=== PATIENT | male | born 1990 | race African-American/Black ===

== ENCOUNTER 2020-07-19 02:18 | Observation (INO) | payer OTHER, SELFPAY ==
[2020-07-19] VITALS (19 sets, daily range): BP systolic 92–133; BP diastolic 48–86; PULSE 71–130; RESP 14–22; TEMP 36–37; O2SAT 99–100; BMI 20.6
--- NOTE | ~2020-07-19 | XR_ITS ---
EXAMINATION: XR chest 1V portable DATE: 07/19/2020 03:07 INDICATION: Syncope. Dizziness. TECHNIQUE: A single frontal view of the chest was obtained. COMPARISON: None. FINDINGS: The chest demonstrates clear lungs without pneumonia, pleural effusion, or pneumothorax. Th e heart size is normal. IMPRESSION: 1. No acute cardiopulmonary disease. Reviewed, dictated and finalized at location A.
--- NOTE | 2020-07-19 02:27 | ECG_ITS ---
Measurements Intervals Sanders Rate: 93 P: 60 RI: 148 QRS: 43 QRSD: 70 T: 43 QT: 305 QTc: 381 Interpretive Statements SINUS RHYTHM NORMAL ECG Electronically Signed On 07-19-2020 7:11:45 CDT by Dima Patel D.O.
[2020-07-19 03:14] LABS: Basophils Percent Auto 0.3 % (0.2-1.2); Eosinophils Percent Auto 0.6 % (0-4.4); Hematocrit 37.6 % (42.0-52.0); Hemoglobin 12.3 g/dL (14.0-18.0); Immature Granulocyte Absolute 0.02 K/mm3 (0.00-0.031); Immature Granulocyte Percent A 0.3 % (0-0.5); Immature Platelet Fraction Pct 8.6 % (0.9-11.2); Lymphocytes Absolute Auto 2.91 K/mm3 (0.9-3.2); Lymphocytes Percent Auto 43.2 % (18.3-44.2); Mean Corpuscular HGB Conc 32.7 g/dl (32-36); Mean Corpuscular Hemoglobin 26.5 pg (26-34); Mean Platelet Volume 11.2 fl (7.4-10.4); Monocytes Absolute Auto 0.6 K/mm3 (0.1-0.6); Monocytes Percent Auto 8.2 % (2.6-8.5); Neutrophils Absolute Auto 3.2 K/mm3 (1.3-6.7); Neutrophils Percent Auto 47.4 % (45.5-73.1); Platelet Count Result 145 k/mm3 (150-375); Red Blood Count 4.64 M/mm3 (4.6-6.20); Red Cell Distribution Width 13.7 % (11.5-14.5); White Blood Count 6.7 K/mm3 (4.5-10.0)
[2020-07-19 03:15] LABS: Add Urine Microscopic? YES; Appearance Urine Clear (Clear); Bilirubin Urine Negative (Negative); Blood Urine Negative (Negative); Color Urine Straw (Yellow); Glucose Urine UA 1+ mg/dL (Negative); Ketones Urine Trace mg/dL (Negative); Leukocyte Esterase Ur Negative LEU/UL (Negative); Nitrate Urine Negative (Negative); Protein Urine Negative (Negative); Urobilinogen Urine Negative mg/dL (<2.0); WBC Urine 0-3 /hpf
[2020-07-19] MEDS: SODIUM CHLORIDE 0.9% IV 1,000 ML 999 ML IV CONT ×2 (03:15→04:48)
--- NOTE | 2020-07-19 03:20 | ED.GENADULT ---
HPI - General Adult General Chief complaint: Dizziness Stated complaint: dizziness Time Seen by Provider: 07/19/20 02:21 History of Present Illness HPI narrative: Patient is a 30-year-old gentleman who presents the emergency department with chief complaint of dizziness. Patient reports that he had an episode yesterday while praying and then tonight whenever he got up to go to the bathroom. The patient reported going to bathroom and then immediately afterwards felt very lightheaded and felt as though he was going to pass out. Patient reports he did not actually pass out Related Data Allergies Allergy/AdvReac Type Severity Reaction Status Date / Time No Known Allergies Allergy Verified 07/19/20 03:38 Review of Systems Review of Systems: Narrative: A 10 system review of systems was completed on the patient and is negative except for what is stated in the HPI. Nursing and ancillary documentation was reviewed. PMFSH Comments Patient denies significant past medical history Social history the patient denies illicit drug use Exam Narrative: Exam Narrative: GENERAL: Well-appearing, well-nourished, and in no acute distress. HEAD: Normocephalic, atraumatic. EYES: PERRLA and EOMI. ENT: Nares clear, no rhinorrhea or epistaxis. Mucous membranes moist. NECK: Supple. CHEST: Clear to auscultation. No respiratory distress. HEART: Regular rate and rhythm. No murmur heard. Normal peripheral pulses. ABDOMEN: Soft, nontender, nondistended, normal active bowel sounds. gu black guiac positive stool EXTREMITIES: Normal range of motion. No edema. SKIN: Warm, dry, no rash. NEURO: No focal deficits. Alert and oriented x3. PSYCH: Normal mood and affect. Course Course Emergency Course: Patient was initially orthostatic and that is improved with IV fluids. After discussion of the patient he normally has a hemoglobin that is between 14 and 16. The case was discussed with Dr. Sy who is on-call for gastroenterology will be happy to consult on the patient and will be admitted to the hospitalist service. Vital Signs Vital signs: Vital Signs Temperature 36.4 C L 07/19/20 02:20 Pulse Rate 95 07/19/20 02:20 Respiratory Rate 16 07/19/20 02:20 Blood Pressure 126/86 07/19/20 02:20 Pulse Oximetry 100 07/19/20 02:20 Temperature 36.4 C L 07/19/20 02:20 Pulse Rate 100 07/19/20 05:28 Respiratory Rate 16 07/19/20 04:30 Blood Pressure 126/75 07/19/20 05:28 Pulse Oximetry 99 07/19/20 04:30 Medical Decision Making Vital Signs Vital Signs: Vital Signs Temperature 36.4 C L 07/19/20 02:20 Pulse Rate 95 07/19/20 02:20 Respiratory Rate 16 07/19/20 02:20 Blood Pressure 126/86 07/19/20 02:20 Pulse Oximetry 100 07/19/20 02:20 Temperature 36.4 C L 07/19/20 02:20 Pulse Rate 100 07/19/20 05:28 Respiratory Rate 16 07/19/20 04:30 Blood Pressure 126/75 07/19/20 05:28 Pulse Oximetry 99 07/19/20 04:30 Lab Data Result diagrams: 07/19/20 03:05 07/19/20 03:05 Labs: Lab Results 07/19/20 07/19/20 07/19/20 Range/Units 03:05 03:05 03:05 WBC 6.7 (4.5-10.0) K/mm3 RBC 4.64 (4.6-6.20) M/mm3 Hgb 12.3 L (14.0-18.0) g/dL Hct 37.6 L (42.0-52.0) % MCV 81.0 (80-100) fl MCH 26.5 (26-34) pg MCHC 32.7 (32-36) g/dl RDW 13.7 (11.5-14.5) % Plt Count 145 L (150-375) k/mm3 MPV 11.2 H (7.4-10.4) fl Immature Gran % (Auto) 0.3 (0-0.5) % Neut % (Auto) 47.4 (45.5-73.1) % Lymph % (Auto) 43.2 (18.3-44.2) % Page % (Auto) 8.2 (2.6-8.5) % Eos % (Auto) 0.6 (0-4.4) % Baso % (Auto) 0.3 (0.2-1.2) % Lymph # (Auto) 2.91 (0.9-3.2) K/mm3 Page # (Auto) 0.6 (0.1-0.6) K/mm3 Eos # (Auto) 0.0 (0-0.3) K/mm3 Baso # (Auto) 0.0 (0.0-0.1) K/mm3 Abs Immat Gran (auto) 0.02 (0.00-0.031) K/mm3 Absolute Neuts (auto) 3.2 (1.3-6.7) K/mm3 Absolute Nucleated RBC 0.0 (0.0-0.012) K/mm3 N
[2020-07-19 03:22] LABS: Alanine Aminotransferase 19 U/L (4-50); Alkaline Phosphatase 29 U/L (38-126); Anion Gap 5 mmol/L (8-16); Aspartate Amino Transferase 28 U/L (17-59); Bilirubin,Total 0.3 mg/dL (0.2-1.3); Blood Urea Nitrogen 40 mg/dL (9-20); Calcium 9.1 mg/dL (8.4-10.2); Carbon Dioxide 30 mmol/L (22-30); Chloride 108 mmol/L (98-107); Estimated CRCL calculation 87 ml/min; Estimated Glomerular Filt Rate > 60; Glucose 108 mg/dL (75-110); Magnesium 2.2 mg/dL (1.6-2.3); Potassium 4.6 mmol/L (3.4-5.0); Sodium 143 mmol/L (137-145)
[2020-07-19 03:34] LABS: Troponin I 0.017 ng/mL (0.000-0.034)
[2020-07-19 03:39] LABS: Lactic Acid Reflex 1.4 mmol/L (0.7-2.1)
[2020-07-19] MEDS: ONDANSETRON INJ 4 MG/2 ML VIAL IV PUSH (04:47)
[2020-07-19 08:00] LABS: Hematocrit 31.7 % (42.0-52.0); Hemoglobin 10.5 g/dL (14.0-18.0)
--- NOTE | 2020-07-19 08:03 | ADMGEN ---
This patient, Zhou Monet, was admitted to [facility] Surg Room 325-01 @ 0708. Patient/family oriented to hospital policies and general routines including ID bracelet, bed and alarms, visiting hours, pain management, procedures, bathroom and other care routines, personal items, smoking policy, room service/diet, and visiting hours. Information on how to activate the Rapid Response Team has been discussed. Patient/Family are encouraged to report perceived risks to care and to ask questions if they do not understand what they are told or what they should do.
[2020-07-19] MEDS: SODIUM CHLORIDE 0.9% IV 1,000 ML 125 ML IV CONT ×2 (08:07→18:25)
--- NOTE | 2020-07-19 08:19 | PM.IMHP ---
H&P: HPI History of Present Illness Date/Time: 07/19/20 08:19 This is a 30 yo male with non significant PMHx that presented to the ED due to light headedness, that occurred couple of times on the previous couple of days when patient was getting up from prayer position and when getting out of bed, he also had 2 bowel movements with which were dark and had blood clots in it, no n/v/abdominal pain, had abdominal cramps prior to passing bloody bowel movements, no diarrhea, no weight ,loss, no fevers, no rigors, no chills, no night sweats, denies the use of any OTC medications, he has been in his usual state of health up until this happened. Preliminary work up was significant for a hemoglobin of 10. Chief Complaint: Lightheadedness. Review of Systems Review of Systems: Narrative: Patient with lightheadedness feeling about to pass out, passed some bloody stool with blood clots in it x 2 Constitutional: Comments: no weight loss, no fevers, no rigors, no chills, no night sweats. ENT: Comments: no nasal congestion, no ear ache, no throat pain. Cardiovascular: Comments: no chest pain, no sob, no leg swelling. Respiratory: Comments: no cough, no sob, no sputum production. Gastrointestinal: Comments: melena, abdominal cramps,no n/v/abdominal pain, Musculoskeletal: Comments: no muscle ache, no joint pain. Integumentary/Breasts: Comments: no rashes. Neurologic: Comments: no sensory motor deficit. [facility] Past Medical History Medical History (Updated 07/19/20 @ 11:34 by Derrick Newman MD) Acute blood loss anemia GI bleed Melena Near syncope UGIB (upper gastrointestinal bleed) Family History Family History (Updated 07/19/20 @ 08:17 by Izabella Prasad RN) Sibling Asthma Social History Social History Smoking status: Never smoker Alcohol intake: never Substance use: never Gender identity (if verbalized by the patient): Male Spiritual care concerns: No Meds Home Medications and Allergies Home Medications Medication Instructions Recorded Confirmed Type ondansetron 4 mg PO Q8H PRN #10 tablet 07/19/20 Rx pantoprazole [Protonix] 40 mg PO HS 28 Days #28 tablet 07/19/20 Rx Allergies Allergy/AdvReac Type Severity Reaction Status Date / Time No Known Allergies Allergy Verified 07/19/20 10:22 Vital Signs Vital Signs - 24 hr 07/19/20 02:20 07/19/20 03:09 07/19/20 03:10 Temperature 97.5 F L Pulse Rate 95 94 100 Respiratory Rate 16 Blood Pressure 126/86 113/77 126/85 Pulse Oximetry 100 07/19/20 03:19 07/19/20 04:30 07/19/20 05:26 Temperature Pulse Rate 130 H 96 100 Respiratory Rate 16 Blood Pressure 101/65 114/70 120/61 Pulse Oximetry 99 07/19/20 05:28 07/19/20 05:46 07/19/20 06:01 Temperature Pulse Rate 100 84 77 Respiratory Rate 14 14 Blood Pressure 126/75 128/79 116/69 Pulse Oximetry 100 100 07/19/20 06:16 07/19/20 06:59 Temperature 98.6 F 98.6 F Pulse Rate 82 82 Respiratory Rate 14 14 Blood Pressure 116/66 116/66 Pulse Oximetry 100 100 Exam Narrative: Exam Narrative: Lying in bed. Const: General: comfortable, no acute distress, alert, awake and Physically active Nutritional Appearance: well nourished Orientation/consciousness: patient oriented x3 HENMT: Head: normal to inspection and normocephalic Ears: hearing grossly normal bilaterally General nose exam: Normal external nose present Face and sinus: normal facial exam Mouth: Yes Normal oral and palatal mucosa present Eyes: General: appearance normal, both eyes and all related structures Pupils: Equal, round and reactive pupils present EOM: EOMs intact bilaterally Neck: Neck: no lymphadenopathy, supple and no JVD Resp: Effort & Inspection: normal respiratory effort and able to speak in complete sentences Auscultation: clear to auscultation bilaterally Cardio: Jugular venous distension: no JVD Rate: regular rate Rhythm: regular rhythm GI: GI Palp: Yes Soft to palpa
[2020-07-19] MEDS: PANTOPRAZOLE SODIUM IV 40 MG VIAL IV PUSH ×2 (08:34→20:25)
--- NOTE | 2020-07-19 10:18 | PC.NURSE ---
Patient to GI lab per wheelchair.
[2020-07-19] MEDS: LACTATED RINGERS 1,000 ML 150 ML IV CONT (10:29)
--- NOTE | 2020-07-19 10:46 | WPDANESEPPF ---
Anes - Initial Pre Proc Eval Procedure: Operation Date: 07/19/20 14:15 Proposed Procedures p Esophagogastroduodenoscopy - Derrick Newman MD Date/Time: 07/19/20 10:46 Surgeon: Maximus Marin MD Pre Op Diagnosis: GI bleed Patient Data Age: 30 Gender: M Height: 5 ft 9 in Weight: 63.4 kg Last Vital Signs Temp 98.1 F 07/19/20 10:25 Pulse 81 07/19/20 10:25 Resp 17 07/19/20 10:25 BP 133/66 07/19/20 10:25 Pulse Ox 100 07/19/20 10:25 Allergies Allergy/AdvReac Type Severity Reaction Status Date / Time No Known Allergies Allergy Verified 07/19/20 10:22 Home Medications Medication Instructions Recorded Confirmed Type ondansetron 4 mg PO Q8H PRN #10 tablet 07/19/20 Rx pantoprazole [Protonix] 40 mg PO HS 28 Days #28 tablet 07/19/20 Rx Laboratory Tests 07/19/20 07/19/20 07/19/20 03:05 03:05 03:05 WBC 6.7 K/mm3 K/mm3 (4.5-10.0) RBC 4.64 M/mm3 M/mm3 (4.6-6.20) Hgb 12.3 g/dL L g/dL (14.0-18.0) Hct 37.6 % L % (42.0-52.0) MCV 81.0 fl fl (80-100) MCH 26.5 pg pg (26-34) MCHC 32.7 g/dl g/dl (32-36) RDW 13.7 % % (11.5-14.5) Plt Count 145 k/mm3 L k/mm3 (150-375) MPV 11.2 fl H fl (7.4-10.4) Immature Gran % (Auto) 0.3 % % (0-0.5) Neut % (Auto) 47.4 % % (45.5-73.1) Lymph % (Auto) 43.2 % % (18.3-44.2) Dewey % (Auto) 8.2 % % (2.6-8.5) Eos % (Auto) 0.6 % % (0-4.4) Baso % (Auto) 0.3 % % (0.2-1.2) Lymph # (Auto) 2.91 K/mm3 K/mm3 (0.9-3.2) Dewey # (Auto) 0.6 K/mm3 K/mm3 (0.1-0.6) Eos # (Auto) 0.0 K/mm3 K/mm3 (0-0.3) Baso # (Auto) 0.0 K/mm3 K/mm3 (0.0-0.1) Abs Immat Gran (auto) 0.02 K/mm3 K/mm3 (0.00-0.031) Absolute Neuts (auto) 3.2 K/mm3 K/mm3 (1.3-6.7) Absolute Nucleated RBC 0.0 K/mm3 K/mm3 (0.0-0.012) Nucleated RBC % 0.0 % % (0.0-0.2) % Immature Plt Fraction 8.6 % % (0.9-11.2) Sodium 143 mmol/L mmol/L (137-145) Potassium 4.6 mmol/L mmol/L (3.4-5.0) Chloride 108 mmol/L H mmol/L (98-107) Carbon Dioxide 30 mmol/L mmol/L (22-30) Anion Gap 5 mmol/L L mmol/L (8-16) BUN 40 mg/dL H mg/dL (9-20) Creatinine 1.00 mg/dL mg/dL (0.7-1.3) Estim Creat Clear Calc 87 ml/min ml/min Estimated GFR > 60 (59 - ) Glucose 108 mg/dL mg/dL (75-110) Lactic Acid Calcium 9.1 mg/dL mg/dL (8.4-10.2) Magnesium 2.2 mg/dL mg/dL (1.6-2.3) Total Bilirubin 0.3 mg/dL mg/dL (0.2-1.3) AST 28 U/L U/L (17-59) ALT 19 U/L U/L (4-50) Alkaline Phosphatase 29 U/L L U/L (38-126) Troponin I 0.017 ng/mL ng/mL (0.000-0.034) Total Protein 7.0 g/dL g/dL (6.3-8.2) Albumin 4.0 g/dL g/dL (3.5-5.1) Urine Color Straw (Yellow) Urine Appearance Clear (Clear) Urine pH 6.0 (5.0-9.0) Ur Specific Bullock 1.020 (1.001-1.035) Urine Protein Negative mg/dL mg/dL (Negative) Urine Glucose (UA) 1+ mg/dL H mg/dL (Negative) Urine Ketones Trace mg/dL mg/dL (Negative) Ur Blood (Man) Negative (Negative) Urine Nitrate Negative (Negative) Urine Bilirubin Negative (Negative) Urine Urobilinogen Negative mg/dL mg/dL (<2.0) Leukocyte Esterase Rfl Negative PUNEET/UL PUNEET/UL (Negative) Urine WBC 0-3 /hpf /hpf 07/19/20 07/19/20 03:24 07:54 WBC RBC Hgb 10.5 g/dL L g/dL (14.0-18.0) Hct 31.7 % L % (42.0-52.0) MCV MCH MCHC RDW Plt Count MPV Immature Gran % (Auto) Neut % (Auto) Ly
--- NOTE | 2020-07-19 11:30 | WPDGICN ---
Assessment and Plan Assessment and plan (1) UGIB (upper gastrointestinal bleed): Code(s): K92.2 - Gastrointestinal hemorrhage, unspecified Status: Acute Assessment and Plan: here with acute gib, denies history of nsaid's drop in hemoglobin, started on protonix iv and npo status will proceed with urgent egd (2) Melena: Code(s): K92.1 - Melena Status: Acute Assessment and Plan: trend hb, supportive care with fluids, protonix and now will do EGD (3) Acute blood loss anemia: Code(s): D62 - Acute posthemorrhagic anemia Status: Acute Assessment and Plan: monitor for more signs of bleeding transfuse if hb<7 (4) Near syncope: Code(s): R55 - Syncope and collapse Status: Acute Assessment and Plan: from bleeding, admitted to hospital GI Consult Note Consult date/time: 07/19/20 11:30 Reason for consult: GIB, melena HPI: Zhou Monet is a 30 year old male who is originally from [facility], he is [employer] student. He had 2 days of dark stools x3 episodes, last night became lightheaded and almost passed out, also epigastric discomfort. Denies taking nsaid's or any other medications. He is healthy otherwise. He called 911 and ER labs showed anemia, hb 12,3 then down 10 with elevated BUN 40, creat 1, normal liver enzymes. Denies history of bleeding, no previous scopes. Denies h/o GERD. Review of Systems Constitutional: Constitutional: Denies chills Eyes: Eyes: Reports no additional eye complaints ENT: Reports Normal hearing present Cardiovascular: Cardiovascular: Reports no additional cardiovascular complaints Gastrointestinal: Gastrointestinal: Reports melena and Denies nausea Genitourinary: Genitourinary: Denies dysuria Musculoskeletal: Musculoskeletal: Reports no additional musculoskeletal complaints Integumentary/Breasts: Skin/Breast: Denies dry skin Neurologic: Denies confusion Comments: near syncope Psychiatric: Psychiatric: Reports no additional psychiatric complaints Endocrine: Endocrine: Denies cold intolerance [facility] Past Medical History Medical History (Updated 07/19/20 @ 11:34 by Derrick Newman MD) Acute blood loss anemia GI bleed Melena Near syncope UGIB (upper gastrointestinal bleed) Family History Family History (Updated 07/19/20 @ 08:17 by Izabella Prasad RN) Sibling Asthma Social History Social History Smoking status: Never smoker Alcohol intake: never Substance use: never Gender identity (if verbalized by the patient): Male Spiritual care concerns: No Meds Home Medications and Allergies Home Medications Medication Instructions Recorded Confirmed Type ondansetron 4 mg PO Q8H PRN #10 tablet 07/19/20 Rx pantoprazole [Protonix] 40 mg PO HS 28 Days #28 tablet 07/19/20 Rx Allergies Allergy/AdvReac Type Severity Reaction Status Date / Time No Known Allergies Allergy Verified 07/19/20 10:22 Vital Signs Vital Signs - 24 hr 07/19/20 02:20 07/19/20 03:09 07/19/20 03:10 Temperature 97.5 F L Pulse Rate 95 94 100 Respiratory Rate 16 Blood Pressure 126/86 113/77 126/85 Pulse Oximetry 100 07/19/20 03:19 07/19/20 04:30 07/19/20 05:26 Temperature Pulse Rate 130 H 96 100 Respiratory Rate 16 Blood Pressure 101/65 114/70 120/61 Pulse Oximetry 99 07/19/20 05:28 07/19/20 05:46 07/19/20 06:01 Temperature Pulse Rate 100 84 77 Respiratory Rate 14 14 Blood Pressure 126/75 128/79 116/69 Pulse Oximetry 100 100 07/19/20 06:16 07/19/20 06:59 07/19/20 10:25 Temperature 98.6 F 98.6 F 98.1 F Pulse Rate 82 82 81 Respiratory Rate 14 14 17 Blood Pressure 116/66 116/66 133/66 Pulse Oximetry 100 100 100 Exam Const: General: comfortable and no acute distress HENMT: General nose exam: Normal nares present Eyes: General: appearance normal, both eyes and all related structures Neck: Neck: no JVD Resp: Auscultation: clear to auscultation lv
[2020-07-19] MEDS: BENZOCAINE (*SP) 60 ML SPRAY CAN (HURRICAINE) 1 SPRAY MUCOUS MEM (11:35)
--- NOTE | 2020-07-19 12:06 | SUR.PHASEII ---
1205--DR BENJAMIN NOTIFIED OF PT'S POSITIVE H PYLORI RESULTS. NO NEW ORDERS RECEIVED.
--- NOTE | 2020-07-19 12:24 | PC.NURSE ---
Patient returned from GI lab per stretcher.
[2020-07-19 13:04] LABS: Hematocrit 31.2 % (42.0-52.0); Hemoglobin 10.4 g/dL (14.0-18.0)
[2020-07-19 17:49] LABS: Hematocrit 29.6 % (42.0-52.0); Hemoglobin 9.9 g/dL (14.0-18.0)
[2020-07-19] MEDS: CLARITHROMYCIN 500 MG TABLET PO (20:25)
[2020-07-19] MEDS: AMOXICILLIN 500 MG CAPSULE 1000 MG PO (20:25)
[2020-07-20 00:40] LABS: Hematocrit 27.5 % (42.0-52.0); Hemoglobin 9.1 g/dL (14.0-18.0)
[2020-07-20] MEDS: SODIUM CHLORIDE 0.9% IV 1,000 ML 125 ML IV CONT (02:35)
[2020-07-20 05:58] VITALS: BP 108/62; PULSE 85; RESP 20; TEMP 36.6; O2SAT 92
--- NOTE | 2020-07-20 07:52 | WPDGIPROGNO ---
Progress Note: A&P Assessment and Plan (1) Duodenal ulcer: Code(s): K26.9 - Duodenal ulcer, unspecified as acute or chronic, without hemorrhage or perforation Status: Acute Assessment and Plan: egd yesterday with duodenal ulcers, no active bleeding but small clot, used gold probe no more bleeding discuss findings of H pylori +, started on treatment and will need total of 14 days, then he can see me in office in ~ 2 months (will check H pylori ag in stool to confirm eradication) (2) Helicobacter pylori gastritis: Code(s): K29.70 - Gastritis, unspecified, without bleeding; B96.81 - Helicobacter pylori [H. pylori] as the cause of diseases classified elsewhere Status: Acute Assessment and Plan: complete treatment as outpatient (3) Acute blood loss anemia: Code(s): D62 - Acute posthemorrhagic anemia Status: Acute Assessment and Plan: will need also iron supplemen cbc as outpatient (4) Near syncope: Code(s): R55 - Syncope and collapse Status: Acute (5) Melena: Code(s): K92.1 - Melena Status: Acute Subjective Date/time seen: 07/20/20 07:52 Interval history: no more bleeding Review of Systems Review of Systems: All systems reviewed & are unremarkable except as noted in HPI and below Exam Const: General: comfortable and no acute distress HENMT: General nose exam: Normal nares present Eyes: General: appearance normal, both eyes and all related structures Neck: Neck: no JVD Resp: Auscultation: clear to auscultation bilaterally Cardio: Rate: regular rate Rhythm: regular rhythm GI: Inspection: non-distended GI Palp: Yes Soft to palpation Skin: General skin exam: normal color Neuro: General: gait normal Speech: normal speech Extrem: General: normal to inspection Psych: Mental Status: mental status grossly normal Objective Data Vital Signs Vital Signs: Vital Signs - 24 hr 07/19/20 10:25 07/19/20 11:49 07/19/20 11:59 Temperature 98.1 F Pulse Rate 81 84 86 Respiratory Rate 17 18 20 Blood Pressure 133/66 92/48 L 94/50 L Pulse Oximetry 100 100 99 07/19/20 12:09 07/19/20 12:36 07/19/20 14:00 Temperature 96.8 F L 97.0 F L Pulse Rate 78 71 73 Respiratory Rate 22 H 18 18 Blood Pressure 96/54 L 112/67 115/69 Pulse Oximetry 100 100 100 07/19/20 20:00 07/19/20 21:52 07/20/20 05:58 Temperature 97.4 F L 97.8 F Pulse Rate 77 77 85 Respiratory Rate 20 20 20 Blood Pressure 107/65 108/62 Pulse Oximetry 100 100 92 Intake/Output Intake/Output: Intake & Output 07/17/20 07/18/20 07/19/20 07/20/20 22:59 23:59 23:59 23:59 Intake Total 3490 1500 Balance 3490 1500 Meds/Results Medications: Active Medications Generic Name Dose Route Start Last Admin Trade Name Freq PRN Reason Stop Dose Admin Amoxicillin 1,000 mg 07/19/20 21:00 07/19/20 20:25 Amoxicillin 500 Mg Capsule PO 08/02/20 21:01 1,000 mg Q12HR ROSALIE Administration Clarithromycin 500 mg 07/19/20 21:00 07/19/20 20:25 Clarithromycin 500 Mg Tablet PO 08/02/20 21:01 500 mg Q12HR ROSALIE Administration Sodium Chloride 1,000 mls @ 125 mls/hr 07/19/20 06:15 07/20/20 02:35 Normal Saline Iv IV CONT 125 mls/hr .Q8H ROSALIE Administration Ondansetron HCl 4 mg 07/19/20 06:14 Ondansetron Inj 4 Mg/2 Ml Vial IV PUSH Q4H PRN Nausea Pantoprazole Sodium 40 mg 07/19/20 21:00 07/19/20 20:25 Pantoprazole Sodium Iv 40 Mg Vial IV PUSH 40 mg Q12HR ROSALIE Administration Radiology Results: ITS Impressions Chest X-Ray 07/19/20 06:51 IMPRESSION: 1. No acute cardiopulmonary disease. Labs Labs: Laboratory Results - last 24 hr 07/19/20 07/19/20 07/19/20 07:54 12:57 17:36 Hgb 10.5 L 10.4 L 9.9 L Hct 31.7 L 31.2 L 29.6 L 07/20/20 00:11 Hgb 9.1 L Hct 27.5 L
[2020-07-20 09:00] VITALS: PULSE 80; RESP 18; O2SAT 96
[2020-07-20] MEDS: AMOXICILLIN 500 MG CAPSULE 1000 MG PO (09:00)
[2020-07-20] MEDS: CLARITHROMYCIN 500 MG TABLET PO (09:00)
[2020-07-20] MEDS: PANTOPRAZOLE SODIUM IV 40 MG VIAL IV PUSH (09:02)
--- NOTE | 2020-07-20 09:13 | WPDANESPN ---
Anes - Prog Note Post-Op Date/Time: 07/20/20 09:13 Cardiovascular status: normal Respiratory status: normal Airway patency: baseline Mental status: baseline Post-Op hydration status: normal Vital Signs: Last Vital Signs Temp 36.6 C 07/20/20 05:58 Pulse 80 07/20/20 09:00 Resp 18 07/20/20 09:00 BP 108/62 07/20/20 05:58 Pulse Ox 96 07/20/20 09:00 Pain Score (VAS): 0/10. Patient resting in bed at time of assessment, appears comfortable. I/O: Intake & Output 07/19/20 07/20/20 07/20/20 23:59 07:59 15:59 Intake Total 1370 1500 Balance 1370 1500 Laboratory Tests 07/20/20 00:11 07/19/20 03:05 07/19/20 07/19/20 07/20/20 12:57 17:36 00:11 Hgb 10.4 L 9.9 L 9.1 L Hct 31.2 L 29.6 L 27.5 L Post-procedural complaints: none Patient Feedback: Patient satisfied with anesthetic care.
[2020-07-20] MEDS: ACETAMINOPHEN 500 MG TABLET 1000 MG PO (11:18)
--- NOTE | 2020-07-20 11:56 | PM.DS ---
DS: Admitting Diagnosis Admitting Diagnosis Admitting Diagnosis: 1) UGIB (upper gastrointestinal bleed): Code(s): K92.2 - Gastrointestinal hemorrhage, unspecified Status: Acute Assessment and Plan: S/p EGD On PPI Ulcers were found in the duodenum. (2) Acute blood loss anemia: Code(s): D62 - Acute posthemorrhagic anemia Status: Acute Assessment and Plan: Transfuse as needed for Hbg 7 or below No new episodes Continue to monitor (3) Near syncope: Code(s): R55 - Syncope and collapse Status: Acute Assessment and Plan: Likely secondary to blood loss Continue to monitor Resolved (4) Melena: Code(s): K92.1 - Melena Status: Acute Assessment and Plan: Likely from ulcer bleeding in the duodenum. DS: Discharge Diagnosis Discharge Diagnosis (1) Helicobacter pylori gastritis: Code(s): K29.70 - Gastritis, unspecified, without bleeding; B96.81 - Helicobacter pylori [H. pylori] as the cause of diseases classified elsewhere Status: Acute Assessment and Plan: On Clarithromycin and Amoxicillin. (2) Duodenal ulcer: Code(s): K26.9 - Duodenal ulcer, unspecified as acute or chronic, without hemorrhage or perforation Status: Acute Assessment and Plan: On Pantoprazole (3) Near syncope: Code(s): R55 - Syncope and collapse Status: Acute Assessment and Plan: Secondary to hypovolemia (4) Acute blood loss anemia: Code(s): D62 - Acute posthemorrhagic anemia Status: Acute Assessment and Plan: Secondary to bleeding ulcer. (5) Melena: Code(s): K92.1 - Melena Status: Acute Assessment and Plan: Secondary to bleeding ulcer (6) UGIB (upper gastrointestinal bleed): Code(s): K92.2 - Gastrointestinal hemorrhage, unspecified Status: Acute Assessment and Plan: S/p EGD DS: Summary Hospital Course Hospital Course: This is a 30 yo male with non significant PMHx that presented to the ED due to light headedness, that occurred couple of times on the previous couple of days when patient was getting up from prayer position and when getting out of bed, he also had 2 bowel movements with which were dark and had blood clots in it, no n/v/abdominal pain, had abdominal cramps prior to passing bloody bowel movements, no diarrhea, no weight ,loss, no fevers, no rigors, no chills, no night sweats, denies the use of any OTC medications, he has been in his usual state of health up until this happened. Preliminary work up was significant for a hemoglobin of 10. Chief Complaint: Lightheadedness. Patient was started on Protronix drip. H&H demonstrated acute iron deficiency anemia. A consult was obtained with GI Patient underwent EGD which found a duodenal ulcer. Patient was kept overnight fo observation and discharged home in am. Will follow up in the outpatient setting with GI. Tested positive for H.Pilori sent on Clarithromycin and Amoxicillin. Also Iron Sulfate and Pantoprazole. Status at Discharge Cognitive/behavioral status at discharge: AOX3 Functional status at discharge: independent ambulation Overall status at discharge: patient is progressing back to baseline Time Spent with Patient Time attestation: Total time spent providing and/or coordinating discharge services: Time spent: Greater than 30 minutes Exam Const: General: cooperative, healthy appearing, comfortable, no acute distress, well developed, alert, awake and Physically active Nutritional Appearance: well nourished and thin Orientation/consciousness: patient oriented x3 HENMT: Head: normal to inspection and atraumatic Ears: hearing grossly normal bilaterally General nose exam: Normal external nose present Face and sinus: normal facial exam Eyes: General: appearance normal, both eyes and all related structures Pupils: Equal, round and reactive pupils present EOM: EOMs intact bilaterally Neck: Neck:
== END 2020-07-20 13:13 | disposition home or self-care (01) ==
LOC: ANHED 05:53 → ANH3MEDSUR 06:38
PROVIDERS: Internal Medicine Gastroenterology; Admitting Provider Family Medicine; Emergency Provider Emergency Medicine; Visit Provider Internal Medicine
PROC: 0DJ08ZZ Inspection of Upper Intestinal Tract, Via Natural or Artificial Opening Endoscopic (ICD-10-PCS; CPT 43235; principal; 2020-07-19 14:15)
DX: K29.50 Unspecified chronic gastritis without bleeding (principal); B96.81 Helicobacter pylori [H. pylori] as the cause of diseases classified elsewhere; K26.9 Duodenal ulcer, unspecified as acute or chronic, without hemorrhage or perforation; D62 Acute posthemorrhagic anemia; R55 Syncope and collapse; K92.1 Melena
CPT/HCPCS: 43239; 43270; 36415; 71045; 80053; 81001; 83605; 83735; 84484; 85014; 85018; 85025; 85055; 87081; 88305; 88342; 93005; 96361; 96374; 96375; 99285; A9270; C9113; G0378; J2370; J2405; J2704; J7030; J7120

== ENCOUNTER 2020-07-22 16:01 | Emergency (ER) | payer OTHER, SELFPAY ==
[2020-07-22 16:04] VITALS: BP 121/73; PULSE 85; RESP 16; TEMP 36.4; O2SAT 100
[2020-07-22 16:27] LABS: Basophils Percent Auto 0.3 % (0.2-1.2); Eosinophils Absolute Auto 0.1 K/mm3 (0-0.3); Eosinophils Percent Auto 1.2 % (0-4.4); Hematocrit 29.4 % (42.0-52.0); Hemoglobin 9.8 g/dL (14.0-18.0); Immature Granulocyte Absolute 0.07 K/mm3 (0.00-0.031); Immature Granulocyte Percent A 1.1 % (0-0.5); Lymphocytes Absolute Auto 1.71 K/mm3 (0.9-3.2); Lymphocytes Percent Auto 25.9 % (18.3-44.2); Mean Corpuscular HGB Conc 33.3 g/dl (32-36); Mean Corpuscular Hemoglobin 26.9 pg (26-34); Mean Corpuscular Volume 80.8 fl (80-100); Mean Platelet Volume 9.8 fl (7.4-10.4); Monocytes Absolute Auto 0.6 K/mm3 (0.1-0.6); Monocytes Percent Auto 9.7 % (2.6-8.5); Neutrophils Absolute Auto 4.1 K/mm3 (1.3-6.7); Neutrophils Percent Auto 61.8 % (45.5-73.1); Platelet Count Result 182 k/mm3 (150-375); Red Blood Count 3.64 M/mm3 (4.6-6.20); Red Cell Distribution Width 14.4 % (11.5-14.5); White Blood Count 6.6 K/mm3 (4.5-10.0)
[2020-07-22 16:43] LABS: Anion Gap 7 mmol/L (8-16); Blood Urea Nitrogen 15 mg/dL (9-20); Calcium 8.6 mg/dL (8.4-10.2); Carbon Dioxide 28 mmol/L (22-30); Chloride 105 mmol/L (98-107); Estimated CRCL calculation 66 ml/min; Estimated Glomerular Filt Rate > 60; Glucose 97 mg/dL (75-110); Potassium 4.2 mmol/L (3.4-5.0); Sodium 140 mmol/L (137-145)
--- NOTE | 2020-07-22 16:43 | ED.GENADULT ---
HPI - General Adult General Chief complaint: Recheck/Abnormal Lab/Rx Stated complaint: high blood pressure? not feeling fine Time Seen by Provider: 07/22/20 16:10 History of Present Illness HPI narrative: Patient is a 30-year-old male who presents the ER for further evaluation after being hospitalized for GI bleed. Patient found to have a peptic ulcer that was positive for H. pylori. He was discharged home with reflux medication as well as antibiotics and iron supplementation. He has been compliant with his medication. Reports he has been feeling exertional fatigue. No fevers or chills or sweats. Reports he is still having some dark stools but they are not filled with clots like they were previously and they are not loose they are now formed. No heartburn or loss of consciousness. Related Data Allergies Allergy/AdvReac Type Severity Reaction Status Date / Time No Known Allergies Allergy Verified 07/19/20 10:22 Review of Systems Review of Systems: All systems reviewed & are unremarkable except as noted in HPI and below Constitutional: Constitutional: Denies chills, Reports fatigue and Denies fever(s) ENT: Denies nasal congestion and Denies sore throat Cardiovascular: Cardiovascular: Denies chest pain, Denies rapid heart rate and Denies radiating jaw, neck or arm pain Gastrointestinal: Gastrointestinal: Denies abdominal pain, Denies constipation, Denies heartburn, Denies diarrhea, Denies nausea and Denies vomiting Comments: Dark-colored stools PMFSH Past Medical History Medical History (Updated 07/22/20 @ 16:47 by Zachary Ho MD) Acute blood loss anemia Duodenal ulcer GI bleed Helicobacter pylori gastritis Melena Near syncope UGIB (upper gastrointestinal bleed) Surgical History Surgical History (Updated 07/22/20 @ 16:45 by Zachary Ho MD) History of esophagogastroduodenoscopy (EGD) Family History Family History (Updated 07/19/20 @ 08:17 by Izabella Prasad RN) Sibling Asthma Social History Social History Smoking status: Never smoker Alcohol intake: never Substance use: never Gender identity (if verbalized by the patient): Male Spiritual care concerns: No Exam Narrative: Exam Narrative: GENERAL: Well-appearing, well-nourished, and in no acute distress. HEAD: Normocephalic, atraumatic. CHEST: Clear to auscultation. No respiratory distress. HEART: Regular rate and rhythm. Normal peripheral pulses. ABDOMEN: Soft, nontender, nondistended. Heme positive stool on guaiac testing without gross blood. Normal-appearing external rectal exam. EXTREMITIES: Normal range of motion. No edema. SKIN: Warm, dry, no rash. NEURO: Alert and oriented x3. PSYCH: Normal mood and affect. Course Course Emergency Course: Patient informed of results. Given reassurance. Recommend continuing the medications that were prescribed. Patient verbalized understanding. Discharge home. Vital Signs Vital signs: Vital Signs Temperature 97.6 F 07/22/20 16:04 Pulse Rate 85 07/22/20 16:04 Respiratory Rate 16 07/22/20 16:04 Blood Pressure 121/73 07/22/20 16:04 Pulse Oximetry 100 07/22/20 16:04 Temperature 97.6 F 07/22/20 16:04 Pulse Rate 85 07/22/20 16:04 Respiratory Rate 16 07/22/20 16:04 Blood Pressure 121/73 07/22/20 16:04 Pulse Oximetry 100 07/22/20 16:04 Medical Decision Making Vital Signs Vital Signs: Vital Signs Temperature 97.6 F 07/22/20 16:04 Pulse Rate 85 07/22/20 16:04 Respiratory Rate 16 07/22/20 16:04 Blood Pressure 121/73 07/22/20 16:04 Pulse Oximetry 100 07/22/20 16:04 Temperature 97.6 F 07/22/20 16:04 Pulse Rate 85 07/22/20 16:04 Respiratory Rate 16 07/22/20 16:04 Blood Pressure 121/73 07/22/20 16:04 Pulse Oximetry 100 07/22/20 16:04 Lab Data Result diagrams: 07/22/20 16:20 07/22/20 16:20 Labs: Lab Results 07/22/20 07/22/20 Range/Units 16:20 16:20 WBC 6
[2020-07-22 17:00] VITALS: BP 112/77; PULSE 80; RESP 19; O2SAT 100
== END 2020-07-22 17:02 | disposition home or self-care (01) ==
PROVIDERS: Emergency Provider Emergency Medicine
DX: K26.9 Duodenal ulcer, unspecified as acute or chronic, without hemorrhage or perforation (principal); D64.9 Anemia, unspecified
CPT/HCPCS: 36415; 80048; 85025; 99283

== ENCOUNTER 2021-05-20 16:06 | Emergency (ER) | payer OTHER, SELFPAY ==
--- NOTE | ~2021-05-20 | XR_ITS ---
EXAMINATION: XR chest 2V EXAM DATE: 05/20/2021 16:36 INDICATION: Chest pain X 3 weeks, left-sided chest pain. TECHNIQUE: Frontal and lateral projections of the chest obtained and reviewed. Comparison is made to prior examination from 07/19/2020. FINDINGS: The lungs are clear. There are no pleural effusions. The cardiomediastinal silhouette is within normal limits. There is no pneumothorax suspected. The bones and soft tissues are unremarkab le. IMPRESSION: No acute cardiopulmonary findings. Reviewed, dictated and finalized at location A. DUPLICATOR
[2021-05-20 16:11] VITALS: BP 130/80; PULSE 84; RESP 18; TEMP 36.8; O2SAT 100
--- NOTE | 2021-05-20 16:11 | ECG_ITS ---
Measurements Intervals [place] Rate: 74 P: 74 MD: 157 QRS: 54 QRSD: 84 T: 55 QT: 354 QTc: 395 Interpretive Statements SINUS RHYTHM WITH SINUS ARRHYTHMIA BASELINE ARTIFACT- I, II, AVR, V1 NORMAL ECG Electronically Signed On 05-20-2021 16:24:49 [facility] by Dima Patel D.O.
[2021-05-20 16:46] LABS: Basophils Percent Auto 0.4 % (0.2-1.2); Eosinophils Percent Auto 0.8 % (0-4.4); Hematocrit 43.9 % (42.0-52.0); Hemoglobin 14.2 g/dL (14.0-18.0); Immature Granulocyte Absolute 0.01 K/mm3 (0.00-0.031); Immature Granulocyte Percent A 0.2 % (0-0.5); Lymphocytes Absolute Auto 2.41 K/mm3 (0.9-3.2); Lymphocytes Percent Auto 45.4 % (18.3-44.2); Mean Corpuscular HGB Conc 32.3 g/dl (32-36); Mean Corpuscular Hemoglobin 25.6 pg (26-34); Mean Corpuscular Volume 79.2 fl (80-100); Monocytes Absolute Auto 0.7 K/mm3 (0.1-0.6); Monocytes Percent Auto 13.6 % (2.6-8.5); Neutrophils Absolute Auto 2.1 K/mm3 (1.3-6.7); Neutrophils Percent Auto 39.6 % (45.5-73.1); Platelet Count Result 256 k/mm3 (150-375); Red Blood Count 5.54 M/mm3 (4.6-6.20); Red Cell Distribution Width 13.8 % (11.5-14.5); White Blood Count 5.3 K/mm3 (4.5-10.0)
--- NOTE | 2021-05-20 16:53 | ED.CHESTPAIN ---
HPI - Chest Pain General Chief Complaint: Chest Pain Stated Complaint: chest pain Time Seen by Provider: 05/20/21 16:53 Source: patient Mode of arrival: ambulatory Limitations: no limitations History of Present Illness HPI narrative: Patient is a 31-year-old male complaining of chest pain, left chest wall, sharp, radiating to middle of the chest, 6 out of 10, worse when he moves his left shoulder, and when he lays in a certain position, started 3 weeks ago. Patient states that he has been doing a lot of push-ups at home. Patient denies any shortness of breath, abdominal pain, nausea, vomiting, diaphoresis, fever or chills Related Data Home Medications Medication Instructions Recorded Confirmed No Home Medications 05/20/21 05/20/21 Allergies Allergy/AdvReac Type Severity Reaction Status Date / Time No Known Allergies Allergy Verified 07/19/20 10:22 Review of Systems Review of Systems: All systems reviewed & are unremarkable except as noted in HPI and below Constitutional: Constitutional: Denies body ache(s), Denies chills, Denies excessive sweating, Denies fatigue, Denies fever(s), Denies headache(s), Denies lethargy, Denies malaise, Denies weakness and Denies weight loss Eyes: Eyes: Denies blurry vision, Denies change in vision and Denies loss of vision ENT: Denies dizziness, Denies ear discharge, Denies headache(s), Denies lip swelling, Denies epistaxis, Denies nasal congestion, Denies neck pain, Denies throat swelling and Denies tongue swelling Cardiovascular: Cardiovascular: Denies chest pain with activity, Denies diaphoresis, Denies rapid heart rate, Denies edema, Denies irregular heart rhythm, Denies lightheadedness, Denies palpitations, Denies dyspnea and Denies dyspnea on exertion Respiratory: Respiratory: Denies chest congestion, Denies cough, Denies hemoptysis, Denies dyspnea and Denies dyspnea on exertion Gastrointestinal: Gastrointestinal: Denies abdominal pain, Denies melena, Denies hematochezia, Denies diarrhea, Denies nausea, Denies vomiting and Denies hematemesis Musculoskeletal: Musculoskeletal: Denies abnormal gait, Denies deformity, Denies joint swelling, Denies limited range of motion, Denies neck pain and Denies numbness Neurologic: Denies Abnormal speech present, Denies abnormal gait, Denies confusion, Denies dizziness, Denies headache(s), Denies focal weakness, Denies loss of vision, Denies numbness, Denies Other visual disturbances, Denies Sensory deficit (Neuro) and Denies weakness Psychiatric: Psychiatric: Denies confusion, Denies depression, Denies auditory hallucinations, Denies homicidal ideation and Denies suicidal ideation Endocrine: Endocrine: Denies cold intolerance, Denies excessive sweating, Denies fatigue, Denies heat intolerance and Denies palpitations Hematologic/Lymphatic: Hematologic/Lymphatic: Denies easy bleeding and Denies easy bruising Allergic/Immunologic: Allergic/Immunologic: Denies lip swelling, Denies throat swelling and Denies tongue swelling PMFSH Past Medical History Medical History Acute blood loss anemia Duodenal ulcer GI bleed Helicobacter pylori gastritis Melena Near syncope UGIB (upper gastrointestinal bleed) Surgical History Surgical History History of esophagogastroduodenoscopy (EGD) Family History Family History Sibling Asthma Social History Social History Smoking status: Never smoker Alcohol intake: never Substance use: never Gender identity (if verbalized by the patient): Male Spiritual care concerns: No Comments Family history: Negative for coronary disease or NC Exam Const: General: cooperative, healthy appearing, comfortable, no acute distress, well developed, alert and awake; No confusion Orientation/consci
[2021-05-20 16:55] LABS: INR 0.9; Partial Thromboplastin Time 29.2 SECONDS (22.3-36.8); Prothrombin Time 12.5 Seconds (11.1-14.7)
[2021-05-20 16:58] LABS: Alanine Aminotransferase 20 U/L (4-50); Albumin Level 4.6 g/dL (3.5-5.1); Alkaline Phosphatase 45 U/L (38-126); Anion Gap 10 mmol/L (8-16); Aspartate Amino Transferase 29 U/L (17-59); Bilirubin,Total 0.4 mg/dL (0.2-1.3); Blood Urea Nitrogen 14 mg/dL (9-20); Calcium 9.3 mg/dL (8.4-10.2); Carbon Dioxide 28 mmol/L (22-30); Chloride 104 mmol/L (98-107); Estimated CRCL calculation 61 ml/min; Estimated Glomerular Filt Rate > 60; Glucose 94 mg/dL (65-110); Lipase 80 U/L (23-300); Sodium 142 mmol/L (137-145)
[2021-05-20 17:09] LABS: Troponin I < 0.012 ng/mL (0.000-0.034)
[2021-05-20 19:24] VITALS: BP 119/81; PULSE 59; RESP 14; O2SAT 100
[2021-05-20] MEDS: IBUPROFEN 400 MG TABLET 800 MG PO (19:25)
== END 2021-05-20 19:59 | disposition home or self-care (01) ==
PROVIDERS: Emergency Provider Emergency Medicine
DX: R07.89 Other chest pain (principal)
CPT/HCPCS: 36415; 71046; 80053; 83690; 84484; 85025; 85610; 85730; 93005; 99284; A9270

== ENCOUNTER 2021-07-21 12:06 | Outpatient (CLI) | payer OTHER, SELFPAY ==
--- NOTE | ~2021-07-21 | XR_ITS ---
XR hip BI 2V w AP pelvis DATE: 07/21/2021 12:28 INDICATION: Bilateral left greater than right hip pain. No known injury. TECHNIQUE: AP pelvis. AP and lateral views of each hip COMPARISON: None FINDINGS: Normal alignment at the pubic symphysis and sacroiliac joints. No pelvic fracture or bone destruction. No fracture or dislocation, avascular necrosis or bone destru ction of either hip is detected. Hip joint spaces appear symmetric and well preserved. IMPRESSION: Negative Reviewed, dictated and finalized at location A. IMPRESSION: Negative
== END 2021-07-21 12:07 | disposition home or self-care (01) ==
LOC: ANHIMG 12:07
PROVIDERS: PCP Emergency Medicine; Visit Provider Emergency Medicine
DX: M25.559 Pain in unspecified hip (principal)
CPT/HCPCS: 73521

== ENCOUNTER 2021-10-02 09:52 | Outpatient (CLI) | payer OTHER, SELFPAY ==
--- NOTE | ~2021-10-02 | MR_ITS ---
EXAMINATION: MR hip LT wo con DATE: 10/02/2021 11:10 INDICATION: Pain in unspecified hip. TECHNIQUE: Magnetic resonance imaging (MRI) of the left hip was performed without intravenous contras t. COMPARISON: Pelvis and hip radiographs 07/21/2021 FINDINGS: Bones/cartilage: Bone alignment is normal. There is decreased femoral head/neck offset anterolaterally on both sides w hich may be seen with femoral acetabular impingement. No fracture. Small [id number] images of the left hip demonstrate normal cartilage. Labrum: The left acetabular labrum is normal. Fluid: There is no hip joint effusion. No trochanteric bursitis. Soft tissues: The hamstring tendon origins and iliopsoas tendons are normal. The gluteus minimus and gluteus medius tendons are normal. IMPRESSION: 1. Decrease femoral head/neck offset bilaterally, which may be seen with femoral acetabular impingeme nt. Reviewed, dictated and finalized at location A. IMPRESSION: 1. Decrease femoral head/neck offset bilaterally, which may be seen with femora l acetabular impingement.
== END 2021-10-02 09:53 | disposition home or self-care (01) ==
LOC: ANHIMG 09:54
PROVIDERS: PCP Emergency Medicine; Visit Provider Emergency Medicine
DX: M25.552 Pain in left hip (principal)
CPT/HCPCS: 73721

== ENCOUNTER 2021-11-10 15:54 | Outpatient (CLI) | payer OTHER, SELFPAY ==
--- NOTE | ~2021-11-10 | MR_ITS ---
EXAMINATION: MR lumbar spine wo con DATE: 11/10/2021 16:29 INDICATION: Lumbar spine pain TECHNIQUE: Magnetic resonance imaging (MRI) of the lumbar spine was performed without intravenous con trast. Sequences included sagittal T2-weighted FSE, sagittal T2-weighted FS FSE, sagittal T1-weighted FSE, and axial T2-weighted FSE. COMPARISON: None FINDINGS: Alignment is normal. Vertebral body heights are normal. Normal marrow signal. Disc heights and signa l are normal. The conus medullaris terminates at L1. There is normal signal in the caudal spinal cord . Paravertebral soft tissues are unremarkable. The following disc levels are specifically discussed: T12-L1: Disc is minimally bulging. There is mild bilateral facet joint osteoarthritis. There is no ne ural foraminal stenosis. There is no central canal stenosis. L1-L2: Disc is mildly bulging. There is mild bilateral facet joint osteoarthritis. There is mild bila teral neural foraminal stenosis. There is minimal central canal stenosis. L2-L3: Disc is mildly bulging. There is mild bilateral facet joint osteoarthritis. There is mild bila teral neural foraminal stenosis. There is no central canal stenosis. L3-L4: Disc is mildly bulging. There is mild bilateral facet joint osteoarthritis. There is mild bila teral neural foraminal stenosis. There is no central canal stenosis. L4-L5: Disc is mildly bulging. There is mild bilateral facet joint osteoarthritis. There is mild to m oderate bilateral neural foraminal stenosis. There is no central canal stenosis. L5-S1: Disc is mildly bulging. There is mild bilateral facet joint osteoarthritis. There is mild to m oderate bilateral neural foraminal stenosis. There is no central canal stenosis. IMPRESSION: 1. Minimal to mild lumbar spondylosis. Reviewed, dictated and finalized at location A.
== END 2021-11-10 15:55 | disposition home or self-care (01) ==
PROVIDERS: PCP Emergency Medicine; Visit Provider Nurse Practitioner Family
DX: M47.896 Other spondylosis, lumbar region (principal)
CPT/HCPCS: 72148

== ENCOUNTER 2022-04-05 10:37 | Outpatient (CLI) | payer OTHER, SELFPAY ==
--- NOTE | ~2022-04-05 | XR_ITS ---
EXAMINATION: XR chest 2V 04/05/2022 11:00 INDICATION: Abnormal IGRA test PROCEDURE: 2 view chest COMPARISON: 09/21/2021 FINDINGS: The lungs are clear. The cardiomediastinal silhouette is within normal limits. There are no pleural effusions. There is no pneumothorax suspected. IMPRESSION: 1: NO ACUTE CARDIOPULMONARY DISEASE. Reviewed, dictated and finalized at location A. NEYMAN MACHINIST
== END 2022-04-05 10:38 | disposition home or self-care (01) ==
LOC: ANHIMG 10:45
PROVIDERS: PCP Emergency Medicine
DX: R76.9 Abnormal immunological finding in serum, unspecified (principal)
CPT/HCPCS: 71046

== ENCOUNTER 2022-06-14 09:57 | Outpatient (NON) | payer OTHER, SELFPAY ==
[2022-06-14 01:59] LABS: Hematocrit 47.1 % (42.0-52.0); Hemoglobin 15.4 g/dL (14.0-18.0); Mean Corpuscular HGB Conc 32.7 g/dl (32-36); Mean Corpuscular Hemoglobin 25.9 pg (26-34); Mean Corpuscular Volume 79.3 fl (80-100); Mean Platelet Volume 9.1 fl (7.4-10.4); Platelet Count Result 242 k/mm3 (150-375); Red Blood Count 5.94 M/mm3 (4.6-6.20); Red Cell Distribution Width 14.2 % (11.5-14.5); White Blood Count 5.2 K/mm3 (4.5-10.0)
== END 2022-06-14 09:58 | disposition home or self-care (01) ==
LOC: ANHLAB 06-20 09:57
PROVIDERS: PCP Emergency Medicine; Visit Provider Emergency Medicine
DX: R53.83 Other fatigue (principal)
CPT/HCPCS: 36415; 84443; 85027; 87338

== ENCOUNTER 2022-06-16 08:00 | Outpatient (NON) | payer OTHER, SELFPAY ==
[2022-06-27 19:25] LABS: H pylori Ag Stool Not Detected (Not Detected)
== END 2022-06-16 08:01 | disposition home or self-care (01) ==
PROVIDERS: PCP Emergency Medicine; Visit Provider Emergency Medicine
DX: K29.70 Gastritis, unspecified, without bleeding (principal); B96.81 Helicobacter pylori [H. pylori] as the cause of diseases classified elsewhere
CPT/HCPCS: 87338